=== PATIENT | male | born 1950 | race Caucasian/White ===

== ENCOUNTER 2016-05-24 12:59 | Emergency (ER) | payer MEDICAID, MEDICARE ==
[~2016-05-24] VITALS: Ht 170.2 cm; Wt 85.0 kg
[~2016-05-24 12:59] MED LIST: HYDR-3090 PO; TAMS0.4C98 PO
[2016-05-24 13:03] VITALS: BP 193/90; PULSE 63; RESP 16; O2SAT 100
--- NOTE | 2016-05-24 13:12 | ED.REPORT ---
HPI-Extremity Problem Upper Date of Service May 24, 2016 ED Provider: Jude Chapman MD A 65 year old male presents to the ED complaining of left arm pain secondary to a fall that occurred earlier this morning. Patient states that he was walking, when his dog stepped in front and tripped him. He reports that he caught himself with the left wrist. Patient denies any difficulty with ROM. He denies any other pains at this time and denies any history of fractures in the left arm. He last ate at 0700. He denies any numbness or tingling in his extremities. Nursing Notes Stated Complaint: POSSIBLE BROKEN WRIST Chief Complaint: Extremity Trauma Nursing Notes Reviewed: Yes Allergies: Coded Allergies: No Known Allergies (Verified , 05/09/15) Scheduled Tamsulosin (Flomax) 0.4 Mg Capsule 0.4 MG PO DAILY Scheduled PRN Hydrocodone-Acetaminophen 5-325 mg (Hydrocodone-Acetaminophen 5-325 mg) 1 Each Tablet 1 TABLET PO Q4H PRN PRN For Pain General Time Seen by MD: 13:09 Chief Complaint Wrist injury left Hx Obtained From: Patient Arrived By: Walk-in Onset Occurred: 5 - 8 hours ago Symptom Duration: Since onset Caused by: Accidental Location: : Wrist left Quality: Painful Severity: Current: Moderate Severity: Maximum: Moderate Associated with: Denies: Numb extremities Pertinent Negative: Pt denies other symptoms Recent Healthcare: No recent hospitalization, Recent doctor visit Past Medical History Past Medical History Kidney stones Basal cell carcinoma Past Surgical History 1. Left-sided ureteroscopy. 2. Laser lithotripsy. 3. Basket stone extraction. 4. Left-sided double-J stent removal and replacement. 5. Excision of basal cell carcinoma Smoking History Former Smoker Social History Other Social History: Good social support, Local resident Ambulatory Status Independent Review of Systems Constitutional: Denies: Chills, Fever Musculoskeletal: Reports: Joint pain (Left wrist pain) Neurologic: Denies: Change LOC, Numbness Complete sys rev & neg: except as marked. Respiratory: Denies: Shortness of breath Cardiovascular: Denies: Chest pain GI: Denies: Abdominal pain, Nausea, Vomiting Physical Exam Initial Vital Signs Vital Signs (First) Date Time Temp Pulse Resp B/P Pulse Ox O2 Delivery O2 Flow Rate FiO2 05/24/16 13:03 36.2 63 16 193/90 100 Room Air Initial VS: Reviewed Head / Eyes: Atraumatic, Normocephalic, PERRL Skin: Warm, Dry, No cyanosis Neurologic: Alert, Oriented, Nonfocal Psychiatric: Mood/affect normal, Behavior normal, Normal thought content General/Constitutional: Awake, Alert Respiratory / Chest: Atraumatic, No respiratory distress Upper Extremity / MS: Atraumatic, Neurologic intact, Vascular intact Wrist / Hand: Atraumatic, Neurologic intact, Vascular intact (cap refill intact ) Left Wrist: Positive: Deformity present... (Gross deformity present ), Tenderness present... (Distal radius tender) WRIST/HAND: Good cap refill Lower Extremity / Pelvis / MS: Atraumatic, Neurologic intact, Vascular intact Interpretation & Diagnostics X-Ray Interpretation Xray Interpretation: IMPRESSION: Comminuted intra-articular fracture of the distal radius demonstrates minimal displacement. Dictated by: Socrates Shea M.D. on 05/24/2016 at 13:49 X-Ray Ordered: Radius ulna left, Wrist left Interpretation / Wet Read by: Interpret - Radiologist Procedures Splint Application - Fx Mgt Time: 14:14 Procedure Performed by: Nurse Type of Immobilization: Sugar tong Definitive Fracture Care: Splint Post-Procedure / Complications: Cap refill normal, Post splint vascular nl, Post splint neuro nl, Condition improved, Tolerated procedure well, Patient stable Splint Post-Application Eval Extremity Condition: Cap refill < 2 sec, Distal sensation intact, Distal motor Intact, No compartment syndrome Re-Eval/Medical Decision Med Decision/Clinical Course Distal radius fracture minimally displaced intra-articular. Neurovascularly intact pre-and post-splint placement. Marj johnson splint placed. Discussed with orthopedics Dr. Ceballos who recommends follow-up with orthopedics this week. Return precautions given regarding any neurovascular compromise or if he gets the splint wet. Re-Evaluation/Progress : Time of Eval: 14:14 Patient Status: Condition improved Re-Evaluation/Progress Note: Patient is rechecked. Splint is applied. Patient tolerates the procedure well. He is informed of his X-ray results and diagnosis. All of the patient's questions are addressed. Consultation : Referral / Consult Name: Enrico Baires MD Consulted With: Ortho hand Call Returned at: 14:13 Safety Council Director: Will see patient, Agrees with eval, Agrees with plan Note: Agrees to follow up with patient. Counseled Regarding: Diagnosis, Need for follow-up, When/why to return to ED Discharge & Departure Impression: Primary Impression: Radial fracture Encounter type: initial encounter Radius location: distal Fracture type: closed Fracture morphology: unspecified fracture morphology Laterality: left Qualified Code: S52.502A - Unspecified fracture of the lower end of left radius, initial encounter for closed fracture Disposition: Home Discharge Condition All VS Reviewed: Yes Condition: Improved Patient Instructions: Wrist Fracture in Adults (ED) Additional Instructions: Thank you for trusting us with your care this afternoon. Your X-ray revealed a radial fracture. Take 1-2 hydrocodone* every 6-8 hours as needed for pain. Schedule an appointment with the referred orthopedic surgeon Dr. Baires tomorrow for a recheck. Please keep the splint in place. Please return to the emergency department for any new or worsening conditions including any numbness, tingling, increased swelling or worsening pain. *One of the medication you have been prescribed is a narcotic and may cause drowsiness. Please do not drink, drive or use acetaminophen while taking this medication. Referrals: Dain Regan MD (PCP) Enrico Baires MDibcarlos Attestation Portions of this note were transcribed by Jessica Garcia. I, Dr. Chapman personally performed the history, physical exam and medical decision-making; I reviewed and confirmed the accuracy of the information in the transcribed note. Signed by: Blanka Luz, 05/24/16 1430. copies to: Enrico Baires MD; Dain Regan MD, Ben M MD May 24, 2016 13:12 JESSICA GARCIA May 24, 2016 13:46
--- NOTE | 2016-05-24 13:53 | DRSVH ---
PROCEDURE: X-RAY LEFT WRIST COMPLETE, MINIMUM THREE VIEWS ([id number]) INDICATIONS: 65-year-old male with left wrist deformity after fall. TECHNIQUE: Four views of the wrist were acquired. COMPARISON: None. FINDINGS: Bony detail is obscured by overlying splint. Bones: There is comminuted minimally displaced intra-articular fracture of the distal radial metaphy sis. Distal ulna appears intact. Carpal bones are normally aligned. No suspicious bony lesions. Scaphoid view: Scaphoid appears intact. Soft tissues: No suspicious soft tissue calcifications. IMPRESSION: Comminuted intra-articular fracture of the distal radius demonstrates minimal displaceme nt. Dictated by: Socrates Shea M.D. on 05/24/2016 at 13:49 Approved by: Socrates Shea M.D. on 05/24/2016 at 13:51
[2016-05-24] MEDS ORDERED: HYDR-4003 PO (14:15)
[2016-05-24] MEDS ORDERED: HYDROcodone-APAP 5-325 mg Tablet PO ONE (15:05)
== END 2016-05-24 15:07 | disposition home or self-care (01) ==
LOC: SED 12:59
DX: S52.592A Other fractures of lower end of left radius, initial encounter for closed fracture (principal); W01.0XXA Fall on same level from slipping, tripping and stumbling without subsequent striking against object, initial encounter; Y92.9 Unspecified place or not applicable; Y93.K1 Activity, walking an animal; Y99.8 Other external cause status; Z87.891 Personal history of nicotine dependence
CPT/HCPCS: 29125; 73110; 96372; 99284; J2270